=== PATIENT | female | born 1990 | race Caucasian/White ===

== ENCOUNTER 2017-01-10 13:40 | Outpatient (CLI) | payer OTHER | END 2017-01-10 13:41 | disposition home or self-care (01) | LOC: LAB.WCP 13:40 | PROVIDERS: ATTEND Family Medicine | DX: Z23 Encounter for immunization (principal) | CPT/HCPCS: 36415; 86317; 86735; 86762; 86765; 86787 ==

== ENCOUNTER 2017-05-19 11:22 | Outpatient (CLI) | payer OTHER ==
--- NOTE | 2017-05-19 13:57 | XRAY Report ---
EXAM: THORACIC SPINE RADIOGRAPHY EXAM DATE: 05/19/2017 12:02 PM. CLINICAL HISTORY: SOMATIC DYSFUNCTION OF THORACIC REGION. COMPARISON: None. TECHNIQUE: 2 views. FINDINGS: Alignment: Minimal leftward convex curvature at the lower thoracic spine, possibly positional. Otherw ise unremarkable Bones: No fractures or bone lesions. Disks: Normal. Disk heights are maintained. Soft Tissues: Normal. The visualized lungs and cardiomediastinal silhouette are normal. IMPRESSION: Unremarkable thoracic spine radiography. [facility] Referring Provider Line: [phone] SITE ID: [id number]
--- NOTE | 2017-05-19 20:50 | XRAY Report ---
EXAM: CERVICAL SPINE RADIOGRAPHY EXAM DATE: 05/19/2017 12:01 PM. CLINICAL HISTORY: Neck pain COMPARISONS: None. TECHNIQUE: 3 views. FINDINGS: Alignment: Normal. No spondylolisthesis or scoliosis. Bones: The cervical vertebral bodies and posterior elements are well visualized from the skull base t hrough C7-T1. No fractures or bone lesions. Disks: Normal. Disk heights are maintained. Facets: No degenerative disease. Soft Tissues: Normal. No prevertebral soft tissue swelling. The visualized lung apices are clear. IMPRESSION: Normal cervical spine radiography. [facility] Referring Provider Line: [phone] SITE ID: [id number]
== END 2017-05-19 11:23 | disposition home or self-care (01) ==
LOC: DI 11:22
PROVIDERS: ATTEND Family Medicine
DX: M99.02 Segmental and somatic dysfunction of thoracic region (principal); M99.01 Segmental and somatic dysfunction of cervical region
CPT/HCPCS: 72040; 72070

== ENCOUNTER 2018-03-14 17:31 | Outpatient (CLI) | payer OTHER ==
--- NOTE | 2018-03-15 10:36 | MRI Report ---
Reason: KNEE JOINT PAIN, RIGHT Procedure Date: 03/14/2018 Accession Number: [id number] / [id number] Procedure: MRI - Knee RT W/O CPT Code: FULL RESULT: EXAM: RIGHT KNEE MRI WITHOUT CONTRAST EXAM DATE: 03/14/2018 06:39 PM. CLINICAL HISTORY: Right knee pain. Previous ACL repair. COMPARISON: None. TECHNIQUE: Multiplanar, multisequence T1-weighted and fluid-sensitive sequences of the knee without contrast. Other: None. FINDINGS: Bones and articular cartilage: Postoperative changes at the distal femur and proximal tibia from previous ACL reconstruction. Metallic tunnel screw at the proximal tibia. No acute fracture or bone lesions. There is a focal, approximately 8 x 4 mm near full-thickness articular cartilage defect at the femoral trochlear groove. No patellar subluxation. Medial Meniscus: The medial meniscus is intact. Lateral Meniscus: The lateral meniscus is intact. Cruciate Ligaments: Evaluation of the ACL graft is technically limited due to postoperative artifacts around the graft. The visualized portions of the ACL graft appear grossly intact. The posterior cruciate ligament is intact. Collateral Ligaments: The medial collateral and lateral collateral ligamentous structures are intact. Tendons: The quadriceps, patellar, semimembranosus, and popliteus tendons are unremarkable. Musculature: No edema or fatty atrophy. Other: No effusion. No popliteal cyst. No loose bodies. The medial and lateral retinacula are intact. There is scar tissue within the infrapatellar fat pad. IMPRESSION: 1. Previous ACL reconstruction. Evaluation of the ACL graft is technically limited due to postoperative artifacts around the graft. The visualized portions of the ACL graft appear grossly intact. 2. No meniscal injury. 3. An 8 x 4 mm near full-thickness articular cartilage defect at the femoral trochlear groove. 4. Scar tissue within the infrapatellar fat pad. [facility] MUSCULOSKELETAL RADIOLOGY SECTION
== END 2018-03-14 17:32 | disposition home or self-care (01) ==
LOC: DI 17:31
PROVIDERS: ATTEND Family Medicine
DX: M23.91 Unspecified internal derangement of right knee (principal)

== ENCOUNTER 2018-09-24 14:18 | Outpatient (CLI) | payer OTHER ==
[2018-09-24 19:13] LABS: ALBUMIN 4.2 g/dL (3.2-5.5); ALBUMIN/GLOBULIN RATIO 1.5 (1.0-2.2); BILIRUBIN,TOTAL 0.3 mg/dL (0.2-1.0); CALCIUM 9.3 mg/dL (8.5-10.3); CREATININE 1.4 mg/dL (0.4-1.0)
== END 2018-09-24 14:19 | disposition home or self-care (01) ==
LOC: LAB.WCP 14:18
PROVIDERS: ATTEND Family Medicine
DX: R94.5 Abnormal results of liver function studies (principal); R74.8 Abnormal levels of other serum enzymes
CPT/HCPCS: 36415; 80053; 82550